=== PATIENT | male | born 2000 | race Caucasian/White ===

== ENCOUNTER 2024-10-16 11:45 | Emergency (ER) | payer BC ==
[2024-10-16 11:58] LABS: BASOPHILS ABSOLUTE AUTO 0.18 10^3/uL (0.00-0.50); BASOPHILS PERCENT AUTO 1.9 % (0-1); EOSINOPHILS ABSOLUTE AUTO 1.37 10^3/uL (0.00-1.50); EOSINOPHILS PERCENT AUTO 14.5 % (0-6); HEMATOCRIT 42.1 % (42.0-52.0); HEMOGLOBIN 14.5 g/dL (14.0-18.0); IMMATURE GRAN ABSOLUTE AUTO 0.02 10^3/uL (0.00-0.49); IMMATURE GRAN PERCENT AUTO 0.2 % (0.0-4.9); LYMPHOCYTES ABSOLUTE AUTO 3.84 10^3/uL (0.60-5.00); LYMPHOCYTES PERCENT AUTO 40.7 % (24-44); MEAN CORPUSCULAR HEMOGLOBIN 30.7 pg (27.0-32.0); MEAN CORPUSCULAR HGB CONC 34.4 g/dL (32.0-36.0); MONOCYTES ABSOLUTE AUTO 0.73 10^3/uL (0.00-1.50); MONOCYTES PERCENT AUTO 7.7 % (0-10); PLATELET COUNT,PLT 310 10^3/uL (150-400); RED BLOOD CELL COUNT 4.73 x10^6/uL (4.50-6.00); WHITE BLOOD CELL COUNT,WBC 9.4 10^3/uL (4.0-11.0)
[2024-10-16] MEDS: fentaNYL 50 MCG/ML SDV IVPUSH ONE ×2 (12:02→12:16)
[2024-10-16] MEDS: Ondansetron 4 MG/2 ML SDV IVPUSH STA (12:06)
[2024-10-16 12:09] LABS: ALANINE AMINOTRANSFERASE,ALT 21 U/L (12-78); ALKALINE PHOSPHATASE 73 U/L (46-116); ASPARTATE AMNIOTRANSFERASE,AST 15 U/L (15-37); BILIRUBIN TOTAL 0.7 mg/dL (0.0-1.0); BLOOD UREA NITROGEN,BUN 14 mg/dL (7-18); C-REACTIVE PROTEIN 1.21 mg/dL (<=0.50); CALCIUM 9.3 mg/dL (8.4-10.1); CARBON DIOXIDE,CO2 26 mmol/L (21-32); CHLORIDE,CL 101 mEq/L (98-106); CREATININE 1.3 mg/dL (0.7-1.3); GLUCOSE RANDOM 120 mg/dL (75-99); POTASSIUM,K 3.6 mEq/L (3.5-5.0); PROTEIN TOTAL,TP 7.6 g/dL (6.4-8.2); SODIUM,NA 139 mEq/L (136-145)
[2024-10-16] MEDS: Sodium Chloride 0.9% 1,000 ML IV SCH (12:12)
[2024-10-16 12:13] LABS: ESTIMATED GFR 79 mL/min (>=60)
[2024-10-16] MEDS: fentaNYL 100 MCG/2 ML SDV IV ONE (12:22)
[2024-10-16] MEDS: fentaNYL 50 MCG/ML SDV ONE ×2 (12:23)
[2024-10-16] MEDS: Sodium Chloride 0.9% 1,000 ML ONE (12:23)
[2024-10-16] MEDS: Ondansetron 4 MG/2 ML SDV ONE (12:24)
[2024-10-16] MEDS: ceFAZolin 2 GM Vial IVPUSH ONE (12:42)
[2024-10-16] MEDS: Diphtheria,Pertussis(Acell),Tetanus Vaccine 0.5 ML Syringe IM ONE (12:42)
[2024-10-16] MEDS: HYDROmorphone 0.5 MG/0.5 ML Syringe IVPUSH ONE ×2 (12:52→13:02)
== END 2024-10-16 13:10 | disposition critical access hospital (66) ==
LOC: CC.ED 11:46
DX: S81.812A Laceration without foreign body, left lower leg, initial encounter (principal); Z23 Encounter for immunization; W29.3XXA Contact with powered garden and outdoor hand tools and machinery, initial encounter; Y93.89 Activity, other specified
CPT/HCPCS: 36415; 73590-LT; 80053; 85025; 86140; 90471; 90715; 96374; 96375; 99284; 99284-25; J0690; J1171; J2405; J3010; J7030